=== PATIENT | female | born 1955 | race Caucasian/White ===

== ENCOUNTER 2018-02-10 14:43 | Emergency (ER) | payer BC, OTHER ==
[~2018-02-10] VITALS: Ht 160 cm; Wt 54.0 kg
[2018-02-10 14:55] VITALS: TEMP 36.6
[2018-02-10] MEDS ORDERED: SODIUM CHLORIDE 0.9% 1000ML 1,000 ML IV STA (15:29)
[2018-02-10] MEDS ORDERED: ONDANSETRON INJ 2 MG/ML 2 ML VIAL IV STA (15:29)
[2018-02-10 15:45] VITALS: O2SAT 98; Ht 160 cm; Wt 54.0 kg
--- NOTE | 2018-02-10 15:50 | DIAGNOSTIC IMAGING REPORT ---
CHEST ONE VIEW PORTABLE CLINICAL HISTORY: EVALUATE WEAKNESS COMPARISON STUDY: No previous studies for comparison. FINDINGS: Lung volumes are normal. No pneumothorax or pleural effusion is noted. There is no consolidation or evidence for pulmonary edema. Cardiomediastinal silhouette is normal. IMPRESSION: No acute cardiopulmonary findings. Electronically signed by: Farhad Kumar M.D. 02/10/2018 3:48 PM Dictated Date/Time: 02/10/2018 3:47 PM
[2018-02-10 16:06] LABS: HEMATOCRIT 40.1 % (37-47); HEMOGLOBIN 13.7 g/dL (12.0-16.0); MEAN CELL VOLUME 88.7 fL (80-100); MEAN CORPUSCULAR HEMOGLOBIN 30.3 pg (25-34); MEAN CORPUSCULAR HGB CONC 34.2 g/dl (32-36); MEAN PLATELET VOLUME 9.4 fL (7.4-10.4); PLATELET COUNT 172 K/uL (130-400); RED CELL DISTRIBUTION WIDTH CV 12.3 % (11.5-14.5); RED CELL DISTRIBUTION WIDTH SD 39.5 fL (36.4-46.3); WHITE BLOOD COUNT 2.64 K/uL (4.8-10.8)
[2018-02-10 16:15] LABS: ALBUMIN 3.5 gm/dl (3.4-5.0); ALT/SGPT 22 U/L (12-78); AST/SGOT 21 U/L (15-37); BLOOD UREA NITROGEN 18 mg/dl (7-18); CALCIUM 8.3 mg/dl (8.5-10.1); CARBON DIOXIDE 28 mmol/L (21-32); CREATININE 0.94 mg/dl (0.60-1.20); GLUCOSE 99 mg/dl (70-99); LIPASE 104 U/L (73-393); POTASSIUM 3.8 mmol/L (3.5-5.1); SODIUM 140 mmol/L (136-145)
[2018-02-10 16:23] LABS: INFLUENZA B ANTIGEN POS for Influ B (NEG)
[2018-02-10 16:26] LABS: ALKALINE PHOSPHATASE 58 U/L (45-117); TOTAL PROTEIN 7.2 gm/dl (6.4-8.2)
[2018-02-10] MEDS ORDERED: ONDA4TAB65 PO (16:41)
--- NOTE | 2018-02-10 16:42 | EMERGENCY ROOM VISIT NOTE ---
History Report prepared by Yaiblouisa: Nirmal Sánchez Under the Supervision of: Dr. Gabriel Mckeon M.D. First contact with patient: 15:20 Chief Complaint: WEAKNESS Stated Complaint: FLU x5DAYS,SEVERE WEAKNESS,CAN'TGET UP Nursing Triage Summary: Patient states "I have been in bed for the last 5 days, I can't move, I can't lift my head." Patient saw PCP and was started on Tamiflu on Friday but states it made her throw up violently. Patient states she has been eating and drinking but just feels exhausted and dizzy. Patient tearful in triage. Denies pain History of Present Illness The patient is a 63 year old white female who presents to the ED with a cc of constant generalized illness beginning five days ago. Positive generalized weakness, fatigue, cough, diaphoresis, chills. Negative nausea, sore throat, urinary symptoms or rashes. Patient was seen by her PCP and was started on Tamiflu two days ago. Tamiflu was ordered based on symptoms rather than a positive flu test. She developed vomiting (x1 episode) after taking Tamiflu. No recent stream or well water consumption. Patient reports walking 18 miles a week with her dog, but has not noticed any tick bites recently. Source of History: patient Onset: Five days ago Position: other (generalized) Quality: other (illness) Timing: constant Associated Symptoms: + chills, + diaphoresis, + cough, + fatigue, + weakness (generalized), No sorethroat, No nausea, No urinary symptoms, No rash Review of Systems See HPI for pertinent positives and negatives. A total of ten systems were reviewed and were otherwise negative. Past Medical & Surgical Medical Problems: (1) No Known Active Medical Problems Family History No pertinent family history stated. Social History Smoking Status: Never Smoker Marital Status: Housing Status: lives with family Current/Historical Medications Scheduled PRN Ondansetron Hcl (Zofran), 1 TAB PO Q4H PRN for Nausea Allergies Coded Allergies: No Known Allergies (Unverified , 02/10/18) Physical Exam Vital Signs Date Time Temp Pulse Resp B/P (MAP) Pulse Ox O2 Delivery O2 Flow Rate FiO2 02/10/18 16:35 58 18 124/73 97 Room Air 02/10/18 16:17 60 02/10/18 15:50 58 16 118/81 99 Room Air 02/10/18 15:45 98 Room Air 02/10/18 14:55 36.6 67 16 147/88 99 Room Air Physical Exam GENERAL: Awake, alert, well-appearing, NAD. Malaise. General fatigue. HENT: Normocephalic, atraumatic. EYES: Normal conjunctiva. Sclera non-icteric. PERRL. No anisocoria. NECK: Supple. No nuchal rigidity. FROM. RESPIRATORY: CTAB, no rhonchi, wheezing, crackles CARDIAC: RRR, no MRG ABDOMEN: Soft, NTND, BS+ MSK: No chest wall TTP, no LE edema NEURO: GCS 15, CN 2-12 intact, moves all 4s on command SKIN: No rash or jaundice noted. Medical Decision & Procedures ER Provider Diagnostic Interpretation: Radiology results as stated below per my review and radiologist interpretation: CHEST ONE VIEW PORTABLE FINDINGS: Lung volumes are normal. No pneumothorax or pleural effusion is noted. There is no consolidation or evidence for pulmonary edema. Cardiomediastinal silhouette is normal. IMPRESSION: No acute cardiopulmonary findings. Electronically signed by: Farhad Kumar M.D. 02/10/2018 3:48 PM Laboratory Results 02/10/18 15:45 Red Blood Count 4.52, Mean Corpuscular Volume 88.7, Mean Corpuscular Hemoglobin 30.3, Mean Corpuscular Hemoglobin Concent 34.2, Mean Platelet Volume 9.4 02/10/18 15:45 Test 02/10/18 15:45 02/10/18 15:48 White Blood Count 2.64 K/uL (4.8-10.8) Red Blood Count 4.52 M/uL (4.2-5.4) Hemoglobin 13.7 g/dL (12.0-16.0) Hematocrit 40.1 % (37-47) Mean Corpuscular Volume 88.7 fL (80-100) Mean Corpuscular Hemoglobin 30.3 pg (25-34) Mean Corpuscular Hemoglobin Concent 34.2 g/dl (32-36) Platelet Count 172 K/uL (130-400) Mean Platelet Volume 9.4 fL (7.4-10.4) RDW Standard Deviation 39.5 fL (36.4-46.3) RDW Coefficient of Variation 12.3 % (11.5-14.5) Neutrophils % (Manual) 43.9 % Lymphocytes % (Manual) 49.1 % Monocytes % (Manual) 6.1 % Basophils % (Manual) 0.9 % Neutrophils # (Manual) 1.16 K/uL (1.4-6.5) Total Absolute Neutrophils 1.16 K/uL (1.4-6.5) Lymphocytes # (Manual) 1.30 K/uL (1.2-3.4) Total Absolute Lymphocytes 1.30 K/uL (1.2-3.4) Monocytes # (Manual) 0.16 K/uL (0.11-0.59) Basophils # (Manual) 0.02 K/uL (0-0.2) Anion Gap 5.0 mmol/L (3-11) Est Creatinine Clear Calc Drug Dose 50.0 ml/min Estimated GFR () 74.3 Estimated GFR (Non- 64.1 BUN/Creatinine Ratio 18.6 (10-20) Calcium Level 8.3 mg/dl (8.5-10.1) Magnesium Level 2.0 mg/dl (1.8-2.4) Total Bilirubin 0.4 mg/dl (0.2-1) Direct Bilirubin 0.1 mg/dl (0-0.2) Aspartate Amino Transf (AST/SGOT) 21 U/L (15-37) Alanine Aminotransferase (ALT/SGPT) 22 U/L (12-78) Alkaline Phosphatase 58 U/L (45-117) Troponin I < 0.015 ng/ml (0-0.045) Total Protein 7.2 gm/dl (6.4-8.2) Albumin 3.5 gm/dl (3.4-5.0) Lipase 104 U/L (73-393) Thyroid Stimulating Hormone (TSH) 2.730 uIu/ml (0.300-4.500) Influenza Type A Antigen Neg for Influ A (NEG) Influenza Type B Antigen POS for Influ B (NEG) Laboratory results reviewed by me Medications Administered Medications (Trade) Dose Ordered Sig/Chloé Route Start Time Stop Time Status Last Admin Dose Admin Sodium Chloride 1,000 ml @ 999 mls/hr Q1H1M STAT IV 02/10/18 15:29 02/10/18 16:29 DC 02/10/18 15:52 999 MLS/HR ECG Per My Interpretation Indication: weakness Rate (beats per minute): 57 Rhythm: sinus bradycardia Findings: other (Normal intervals. Normal axis. No STS changes or TWI. ) ED Course 1523: The patient was evaluated in room A4B. A complete history and physical exam was performed. 1650: I reevaluated the patient. Discussed results and discharge instructions: she verbalized understanding and agreement. The patient is ready for discharge. Medical Decision Nursing notes reviewed. Ancillary studies and prior records reviewed. The patient is a 63 year old white female who presents to the ED with a cc of constant generalized illness beginning five days ago. Positive generalized weakness, fatigue, cough, diaphoresis, chills. Differential diagnosis: Etiologies such as metabolic, infection, hypo/hyperglycemia, electrolyte abnormalities, cardiac sources, intracerebral event, toxicologic, neurologic, as well as others were entertained. Patient was seen and evaluated the bedside. Patient was complaining of some generalized illness, weakness, and body aches approximately 5 days prior. Patient was prescribed Tamiflu but was not tested for influenza but the patient did not continue take her medications as she had some vomiting. Patient has had some decreased p.o. intake. Patient did have blood work completed along with an influenza swab, chest x- ray. Patient's chest x-ray clear. Patient did test positive for influence of B. Patient is outside the 48 hour window for improvement of symptoms with Tamiflu given that the patient did not tolerate it very well has not given it now. Patient did have some mild leukopenia this is likely related to her viral illness. Patient did feel mildly improved after symptomatic treatment. Patient was informed of findings. Patient was told that she should continue to hydrate liberally with clear liquids and take [id number] type medications. Patient was given strict follow-up, discharge, and return precautions. All questions were answered. Patient was deemed suitable for outpatient follow-up at this time. Patient agreed with the plan of care and was safely discharged home. Medication Reconcilliation Current Medication List: was personally reviewed by me Blood Pressure Screening Patient's blood pressure: Normal blood pressure Blood pressure disposition: Did not require urgent referral Impression Primary Impression: Influenza B Additional Impressions: Viral syndrome Dehydration Leukopenia Scribe Attestation The scribe's documentation has been prepared under my direction and personally reviewed by me in its entirety. I confirm that the note above accurately reflects all work, treatment, procedures, and medical decision making performed by me. Departure Information Dispostion Home / Self-Care Prescriptions Ondansetron Hcl (ZOFRAN) 4 Mg Tab 1 TAB PO Q4H Y for Nausea for 3 Days, #20 TAB 2 Refills Prov: Gabriel Mckeon M.D. 02/10/18 Referrals Dano Torres M.D. (PCP) Patient Instructions Dehydration, ED Flu, My [facility] Additional Instructions Please return to the emergency department if you have worsening or recurrent symptoms not amenable to at-home treatment. Please call for a follow-up appointment with her primary care physician. Please take your medications as prescribed. If you have other concerns and/or complaints please feel free to also call your primary care physician's office or return the ED for further evaluation, management, and treatment. Continue to hydrate liberally with clear liquids. Advance her diet as tolerated. Consider soups, broth, saltines, light pasta. You may take 800 mg Ibuprofen every 6 hours as needed for pain/fever with food unless told by your physician not to take NSAIDs. You may take tylenol 1000 mg every 6 hours as needed for pain/fever unless told by your physician to not take it or have liver problems. You may take motrin and tylenol separately or at the same time. Take your medications as prescribed. You have been examined and treated today on an emergency basis only. This is not a substitute for, or an effort to provide, complete comprehensive medical care. It is impossible to recognize and treat all injuries or illnesses in a single emergency department visit. It is therefore important that you follow up closely with [facility], your PCP, and/or your specialist(s). Call as soon as possible for an appointment. Thank you for your time and consideration. I look forward to speaking with you again soon. Please don't hesitate to call us if you have any questions. Problem Qualifiers
[2018-02-10 17:18] VITALS: BP 123/74; PULSE 61; O2SAT 97
== END 2018-02-10 17:20 | disposition home or self-care (01) ==
LOC: C.EDB 14:45 → C.EDA 17:20
DX: J10.1 Influenza due to other identified influenza virus with other respiratory manifestations (principal); E86.0 Dehydration; D72.819 Decreased white blood cell count, unspecified

== ENCOUNTER 2021-11-25 21:35 | Observation (INO) ==
[2021-11-25] MEDS ORDERED: SODIUM CHLORIDE 0.9% 500 ML IV STA (21:55)
[2021-11-25] MEDS ORDERED: KETOROLAC TROMETHAMINE 15 MG/ML VIAL IV STA ×2 (21:55→22:48)
--- NOTE | 2021-11-25 22:14 | Emergency Department Note ---
Impression & Plan RLQ abdominal pain, Acute appendicitis ED Provider Note NAME: DANIELLA VILLANUEVA AGE: 66 SEX: F : 1955 ARRIVES VIA: Walk-In INFORMANT: [Patient] ED PROVIDER(S): [Amish Childress MD] CHIEF COMPLAINT: Abdominal pain HISTORY OF PRESENT ILLNESS: The patient is a 66-year-old female who presents with 1 week of right lower quadrant abdominal pain. The pain has been mild but today after eating lunch, it got worse. Sitting still the pain is a 4, movement or turning or walking increases the pain. Even laughing makes the pain worse. She had a low-grade fever today. She has had no urinary complaints. No cough or congestion or shortness of breath. She has no prior history of abdominal surgeries. The patient had a similar pain a few months ago. The pain lingered for about a month before going away. REVIEW OF SYSTEMS: See HPI for pertinent positives and negatives. A total of ten systems were reviewed and were otherwise negative. PMHx/PSHx: See Below SOCIAL HISTORY: See Below. PHYSICAL EXAM: GENERAL: Patient is in no acute distress. HEENT: No acute trauma, normocephalic atraumatic, mucous membranes moist, no nasal congestion, no scleral icterus. NECK: No stridor, no adenopathy, no meningismus, trachea is midline. LUNGS: Clear to auscultation bilaterally, no wheeze, no rhonchi, breath sounds equal. HEART: Without murmurs gallops or rubs, regular rate and rhythm. ABDOMEN: Soft, moderately tender in the right lower quadrant, bowel sounds positive, no hernias, no peritonitis. EXTREMITIES: No cyanosis or edema, full range of motion of all the joints without pain or difficulty, no signs for acute trauma. NEUROLOGIC: Oriented x 3, no acute motor or sensory deficits, no focal weakness. SKIN: No rash, no jaundice, no diaphoresis. DIFFERENTIAL DIAGNOSIS: Appendicitis, ovarian cyst, ovarian torsion, diverticulitis, UTI, obstruction, mesenteric ischemia, aortic pathology, inflammatory bowel disease, renal colic, PUD, pancreatitis, biliary pathology, hernia, volvulus, constipation, as well as other pathologies. EMERGENCY DEPARTMENT COURSE/PROCEDURES: MEDICAL DECISION MAKING: There is no leukocytosis or concerning anemia. There is a normal platelet count. Sodium was a bit low but not in need of emergent correction. No renal failure. No significant electrolyte abnormality. No evidence for pancreatitis. Urinalysis does not show infection. On exam, the patient was quite tender in the right lower quadrant. She was not febrile or toxic. Abdominal and pelvis CT shows acute appendicitis with an appendicolith, no rupture or abscess seen. The patient received IV Toradol for pain, she received IV saline for hydration. She received IV cefoxitin. The on-call surgeon was consulted. I did speak with the patient about her findings, case management was made aware. The patient is being hospitalized for an appendectomy. The CT findings certainly explain her pain. Past Med/Surg History Medical History No significant medical problems Social History Smoking Status: Never smoker Preferred Language: Pakistani Feels Safe at Home: Yes Allergies Allergies Allergy/AdvReac Type Severity Reaction Status Date / Time No Known Allergies Allergy Unverified 11/25/21 22:13 Home Meds Home Medications Medication Instructions Recorded Confirmed cholecalciferol (vitamin D3) 25 50 mcg PO DAILY 11/25/21 11/25/21 mcg (1,000 unit) tablet (Vitamin D3) zinc 50 mg tablet 50 mg PO DAILY 11/25/21 11/25/21 Results & Data (ED) Vital Signs Vital Signs - 24 hr 11/25/21 21:37 11/25/21 23:06 Temperature 37.0 C Temperature Source Temporal Artery Scan Pulse Rate 83 Pulse Rate [Finger] 77 Respiratory Rate 16 Respiratory Effort / Characteristics Non-Labored Spontaneous Respiratory Depth Normal Blood Pressure 143/88 H Blood Pressure Mean 106 Blood Pressure Position Sitting Pulse Oximetry 98 99 Oxygen Delivery Method Room Air Room Air Sepsis Recent Fever Within 48 Hours No Sepsis New/Unexplained Change in Mental Status N/A Sepsis Action Taken by Nursing No Action Required Home Medications Current Medication List: was personally reviewed by me Laboratory Data Attestation: I reviewed the patient's lab results. Result diagrams: 11/25/21 22:15 11/25/21 22:15 Lab Results 11/25/21 11/25/21 11/25/21 Range/Units 22:15 22:15 22:15 WBC 10.33 (4.8-10.8) K/uL RBC 4.13 L (4.2-5.4) M/uL Hgb 12.8 (12.0-16.0) g/dL Hct 37.6 (37-47) % MCV 91.0 (80-100) fL MCH 31.0 (25-34) pg MCHC 34.0 (32-36) g/dL RDW Std Deviation 41.0 (36.4-46.3) fL RDW Coeff of Malinda 12.3 (11.5-14.5) % Plt Count 256 (130-400) K/uL MPV 9.8 (7.4-10.4) fL Immature Gran % (Auto) 0.1 % Neut % (Auto) 79.5 % Lymph % (Auto) 10.4 % Hartley % (Auto) 9.7 % Eos % (Auto) 0.2 % Baso % (Auto) 0.1 % Neut # (Auto) 8.22 H (1.4-6.5) K/uL Lymph # (Auto) 1.07 L (1.2-3.4) K/uL [place] # (Auto) 1.00 H (0.11-0.59) K/uL Eos # (Auto) 0.02 (0-0.5) K/uL Baso # (Auto) 0.01 (0-0.2) K/uL Immature Gran # (Auto) 0.01 (0.00-0.02) K/uL Sodium 135 L (136-145) mmol/L Potassium 3.7 (3.5-5.1) mmol/L Chloride 100 (98-107) mmol/L Carbon Dioxide 27 (21-32) mmol/L Anion Gap 8 (3-11) BUN 21 (6-23) mg/dl Creatinine 0.96 (0.6-1.2) mg/dl Est Cr Clr Drug Dosing 47.0 ml/min Est GFR ( Amer) 70.9 ml/min Est GFR (Non-Af Amer) 61.2 ml/min BUN/Creatinine Ratio 21.9 H (10-20) Glucose 111 H (70-99(Fasting)) mg/dl Calcium 9.1 (8.5-10.1) mg/dl Total Bilirubin 0.7 (0.2-1.0) mg/dl AST 17 (13-39) U/L ALT 20 (7-52) U/L Alkaline Phosphatase 81 (34-104) U/L Total Protein 7.3 (6.0-8.3) gm/dl Albumin 4.0 (3.4-5.0) gm/dl Globulin 3.3 (2.5-4.0) gm/dl Albumin/Globulin Ratio 1.2 (0.9-2) Lipase 7 L (11-82) U/L Urine Color Yellow Urine Appearance Clear (Clear) Urine pH 7.5 (4.5-7.5) Ur Specific [place] 1.024 (1.000-1.030) Urine Protein Negative (Negative) Urine Glucose (UA) Negative (Negative) Urine Ketones 1+ H (Negative) Urine Blood Negative (Negative) Urine Nitrite Negative (Negative) Urine Bilirubin Negative (Negative) Urine Urobilinogen Negative (Negative) Ur Leukocyte Esterase Negative (Negative) Administered Medications Sodium Chloride (Nss 1000ml) 500 mls @ 999 mls/hr IV .Q31M ONE Stop: 11/26/21 00:20 Last Admin: 11/25/21 23:57 Dose: 999 mls/hr Documented by: [id number] Discontinued Medications Sodium Chloride (Nss) 500 mls @ 999 mls/hr IV .Q31M STA Stop: 11/25/21 22:25 Last Infusion: 11/25/21 23:36 Dose: 0 mls/hr Documented by: [id number] Admin: 11/25/21 22:15 Dose: 999 mls/hr Documented by: [id number] Ioversol (Optiray 320 100ml) 95 ml IV ONCE ONE Stop: 11/25/21 23:04 Last Admin: 11/25/21 23:04 Dose: 95 ml Documented by: [id number] Ketorolac Tromethamine (Ketorolac Tromethamine 15 Mg/Ml Vial) 15 mg IV NOW STA Stop: 11/25/21 21:56 Last Admin: 11/25/21 22:15 Dose: Not Given Documented by: [id number] Ketorolac Tromethamine (Ketorolac Tromethamine 15 Mg/Ml Vial) 15 mg IV NOW STA Stop: 11/25/21 22:49 Last Admin: 11/25/21 22:49 Dose: 15 mg Documented by: [id number] Imaging Data Radiologist's Impression: Abdominal and pelvis CT with IV contrast: There is a 11 mm appendicolith within the appendix which is dilated to 2.2 cm and demonstrates surrounding inflammati on characteristic of acute appendicitis. No signs of overt rupture or abscess formation. The liver, gallbladder, pancreas, spleen, adrenal glands and kidneys appear within normal limits. The aorta is nondilated. The uterus, adnexa, and urinary bladder are within normal limits. No acute fracture or subluxation is seen. Discharge Plan Visit Data Chief Complaint: Abdominal Pain Stated Complaint: RLQ PAIN ED Provider: Amish Childress Discharge Problem: RLQ abdominal pain, Acute appendicitis Patient Disposition: Admitted As Inpatient Condition: Good Forms Stand Alone Forms: [facility] [employer] Prescriptions Prescriptions: No Action zinc 50 mg Tablet 50 mg PO DAILY RF: 0 cholecalciferol (vitamin D3) [Vitamin D3] 25 mcg (1,000 unit) Tablet 50 mcg PO DAILY RF: 0 Referrals Referrals: Dano Torres MD [Outside Practitioners] - Discharge Problem: Acute appendicitis Qualifiers: Acute appendicitis type: with localized peritonitis Appendicitis gangrene presence: without gangrene Appendicitis perforation presence: without perforation Appendicitis abscess presence: without abscess Qualified Code(s): K35.30 - Acute appendicitis with localized peritonitis, without perforation or gangrene
[2021-11-25 22:21] LABS: Basophils # (auto) 0.01 K/uL (0-0.2); Basophils % (auto) 0.1 %; Eosinophils # (auto) 0.02 K/uL (0-0.5); Eosinophils % (auto) 0.2 %; Hematocrit (blood only) 37.6 % (37-47); Hemoglobin 12.8 g/dL (12.0-16.0); Immature Granulocytes # (auto) 0.01 K/uL (0.00-0.02); Immature Granulocytes % (auto) 0.1 %; Lymphocytes # (auto) 1.07 K/uL (1.2-3.4); Lymphocytes % (auto) 10.4 %; Mean Platelet Volume 9.8 fL (7.4-10.4); Monocytes % (auto) 9.7 %; Neutrophils # (auto) 8.22 K/uL (1.4-6.5); Neutrophils % (auto) 79.5 %; Platelet Count 256 K/uL (130-400); RDW Coefficient of Variation 12.3 % (11.5-14.5); Red Blood Count 4.13 M/uL (4.2-5.4); White Blood Count 10.33 K/uL (4.8-10.8)
[2021-11-25 22:22] LABS: Appearance Urine Clear (Clear); Bilirubin Urine Negative (Negative); Blood Urine Negative (Negative); Color Urine Yellow; Glucose Urine UA Negative (Negative); Ketones Urine 1+ (Negative); Leukocyte Esterase Urine Negative (Negative); Nitrite Urine Negative (Negative); Protein Urine Negative (Negative); Specific Gravity Urine 1.024 (1.000-1.030); Urobilinogen Urine Negative (Negative); pH Urine 7.5 (4.5-7.5)
[2021-11-25 22:44] LABS: Albumin Globulin Ratio 1.2 (0.9-2); BUN Creatinine Ratio 21.9 (10-20); Bilirubin,Total 0.7 mg/dl (0.2-1.0); Calcium 9.1 mg/dl (8.5-10.1); Est GFR (African American) 70.9 ml/min; Est GFR (Non-African American) 61.2 ml/min; Globulin 3.3 gm/dl (2.5-4.0); Potassium 3.7 mmol/L (3.5-5.1); Total Protein 7.3 gm/dl (6.0-8.3)
[2021-11-25] MEDS ORDERED: OPTIRAY 320 100ml IV ONE (23:03)
[2021-11-25] MEDS ORDERED: SODIUM CHLORIDE 0.9% 1000ML 500 ML IV ONE (23:50)
[2021-11-26] MEDS ORDERED: cefOXitin 2,000 MG/60 ML BAG IV STA (00:09)
--- NOTE | 2021-11-26 00:22 | Communication Note ---
Date of Service: November 26, 2021 66 y/o female with uncomplicated appendicitis on CT, will admit to med/surg and plan for laparoscopic appendectomy in AM.
[2021-11-26] MEDS ORDERED: ACETAMINOPHEN 1000 MG/100 ML IV IV SCH (02:18)
[2021-11-26] MEDS ORDERED: ONDANSETRON INJ 2 MG/ML 2 ML VIAL IV PRN ×2 (02:18→07:21)
[2021-11-26] MEDS ORDERED: diphenhydrAMINE 50 MG/ML VIAL IV PRN (02:18)
[2021-11-26] MEDS ORDERED: MoRPHine SULFATE 4 MG/ML 1 ML CARP\\VIAL IV PRN (02:18)
[2021-11-26] MEDS ORDERED: MoRPHine SULFATE 2 MG/ML CARP IV PRN (02:18)
[2021-11-26] MEDS ORDERED: LACTATED RINGER'S 1,000 ML IV SCH (02:18)
[2021-11-26] MEDS ORDERED: ACETAMINOPHEN 1,000 MG/100 ML VIAL IV SCH (03:00)
[2021-11-26] MEDS: cefOXitin 2,000 MG in DEXTROSE 5% 50 ML IV SCH ×2 (05:39→11:52)
--- NOTE | 2021-11-26 07:11 | CT Scan Report ---
CT abd pelvis IV con only CLINICAL HISTORY: rlq pain TECHNIQUE: Helical axial images of the abdomen and pelvis were obtained and displayed. Automated dose lowering techniques and/or adjustment according to patient size were utilized for this exam. This e xam was performed with intravenous contrast. COMPARISON: None available at the time of this dictation. FINDINGS: Lower chest: Bibasilar atelectasis versus scarring is seen. Liver: Unremarkable. No focal lesions are seen. Gallbladder and biliary tree: No calcified gallstones. Normal caliber wall. No intra- or extrahepatic biliary ductal dilation. Pancreas: Unremarkable, no focal lesions. Spleen: Unremarkable. Adrenals: Unremarkable. Kidneys and ureters: Subcentimeter hypodensities are too small to characterize. Bladder: Unremarkable. Reproductive organs: Unremarkable. Bowel: Markedly dilated appendix. An appendicolith is seen in the appendix is dilated up to 2.2 cm. N o evidence of rupture. Lymph nodes Retroperitoneal: Unremarkable. Mesenteric: Subcentimeter nodes are seen in the right lower quadrant. Pelvic: Unremarkable. Peritoneum: Normal. Vessels: Unremarkable. Abdominal wall: A fat-containing umbilical hernia is seen. Bones: Degenerative changes in the visualized spine. IMPRESSION: Findings are compatible with acute appendicitis without evidence of rupture or abscess formation. ACT 112: Negative or not required by law. Electronically signed by: Jose Cedillo M.D. 11/26/2021 7:10 AM
--- NOTE | 2021-11-26 07:15 | Anesthesiology Consultation ---
Date of Service November 26, 2021 Assessment & Plan (1) Encounter for pre-operative examination: Chart Review Chart Review: entry level project coordinator initiated History Surgery Operation Date: 11/26/21 09:40 Proposed Procedures p Laparoscopic Appendectomy - Gama Acevedo DO, FACS Height/Weight Height: 5 ft 3 in Weight: 57.2 kg Allergies Allergy/AdvReac Type Severity Reaction Status Date / Time No Known Allergies Allergy Unverified 11/25/21 22:13 Medications Home Medications Medication Instructions Recorded Confirmed Last Taken cholecalciferol (vitamin D3) 25 50 mcg PO DAILY 11/25/21 11/25/21 11/25/21 mcg (1,000 unit) tablet (Vitamin D3) zinc 50 mg tablet 50 mg PO DAILY 11/25/21 11/25/21 11/25/21 Active Medications Generic Name Dose Route Start Last Admin Trade Name Freq PRN Reason Stop Dose Admin Lactated Ringer's 1,000 mls @ 125 mls/hr 11/26/21 02:18 11/26/21 02:36 Lr IV 12/26/21 02:17 125 mls/hr .Q8H AYAH Administration Cefoxitin Sodium 2,000 mg/ 60 mls @ 100 mls/hr 11/26/21 06:00 11/26/21 06:16 Dextrose IV 11/27/21 05:59 Infused Q6H AYAH Infusion Acetaminophen 1,000 mg in 100 mls @ 400 mls/hr 11/26/21 03:00 11/26/21 03:32 Ofirmev IV 11/29/21 02:59 Infused Q8H AYAH Infusion Protocol Past Medical History Medical History No significant medical problems Social History Smoking Status: Never smoker Hx Alcohol Use: No Hx Substance Use: No Physical Exam Vital Signs Last Vital Signs Temp 99.3 F 11/26/21 02:05 Pulse 77 11/26/21 02:05 Resp 16 11/26/21 02:05 BP 143/80 H 11/26/21 02:05 Pulse Ox 94 11/26/21 02:05 Testing Laboratory Results 11/25/21 22:15 11/25/21 22:15 Urine Color Yellow 11/25/21 22:15 Urine Appearance Clear (Clear) 11/25/21 22:15 Urine pH 7.5 (4.5-7.5) 11/25/21 22:15 Ur Specific [place] 1.024 (1.000-1.030) 11/25/21 22:15 Urine Protein Negative (Negative) 11/25/21 22:15 Urine Glucose (UA) Negative (Negative) 11/25/21 22:15 Urine Ketones 1+ (Negative) H 11/25/21 22:15 Urine Nitrite Negative (Negative) 11/25/21 22:15 Ur Leukocyte Esterase Negative (Negative) 11/25/21 22:15
[2021-11-26] MEDS ORDERED: fentaNYL citrate 100 MCG/2 ML VIAL IV PRN (07:21)
[2021-11-26] MEDS ORDERED: ATROPINE SULFATE 0.1 MG/ML 10ML SYR IV PRN (07:21)
[2021-11-26] MEDS ORDERED: ePHEDrine sulfate 50 MG/ML AMP IV PRN (07:21)
[2021-11-26] MEDS ORDERED: ONDANSETRON INJ 2 MG/ML 2 ML VIAL ONE ×2 (07:34→08:48)
[2021-11-26] MEDS ORDERED: MIDAZOLAM HCL 1 MG/ML 2ML VIAL ONE (07:34)
[2021-11-26] MEDS ORDERED: PROPOFOL IV EMULSION 10 MG/ML 20 ML VIAL IV ONE (07:34)
[2021-11-26] MEDS ORDERED: LIDOCAINE 2% 2 ML VIAL/AMP(20MG/ML) INFIL ONE (07:34)
[2021-11-26] MEDS ORDERED: fentaNYL citrate 100 MCG/2 ML VIAL ONE (07:34)
[2021-11-26] MEDS ORDERED: DEXAMETHASONE SOD INJ 4 MG/ML VIAL ONE (07:34)
[2021-11-26] MEDS ORDERED: GLYCOPYRROLATE 0.2 MG/ML VIAL ONE ×2 (07:34→08:47)
[2021-11-26] MEDS ORDERED: NEOSTIGMINE METHYLSULFATE 1 MG/ML 10ML VIAL ONE (07:34)
[2021-11-26] MEDS ORDERED: ROCURONIUM BROMIDE 10 MG/ML 5 ML VIAL IV ONE (07:47)
[2021-11-26] MEDS ORDERED: LARYING-O-JET KIT (LTA) ONE (07:47)
--- NOTE | 2021-11-26 08:12 | History & Physical Report ---
Date of Service November 26, 2021 Assessment & Plan (1) Acute appendicitis: Plan: 66 year old female with acute appendicitis plan for laparoscopic appendectomy risks discussed to include but not limited to bleeding, infection, open surgery, damage to surrounding structures, abscess, normal appendix, need for future or more extensive surgery, and risks of anesthesia. possible d/c this afternoon Admission and Anticipated Discharge Date Admission Date: November 26, 2021 History of Present Illness Primary Care Provider: Mehdi Correia MD 66 y/o female presented to ED with 5 days RLQ pain. Started but wasn't too bad, yesterday got worse. No fevers, no other symptoms. History of similar symptoms a few months ago. Otherwise healthy, no prior surgery. Allergies Allergy/AdvReac Type Severity Reaction Status Date / Time No Known Allergies Allergy Unverified 11/25/21 22:13 Home Medications Medication Instructions Recorded Confirmed Type cholecalciferol (vitamin D3) 25 50 mcg PO DAILY 11/25/21 11/25/21 History mcg (1,000 unit) tablet (Vitamin D3) zinc 50 mg tablet 50 mg PO DAILY 11/25/21 11/25/21 History Past Med/Surg History Medical History No significant medical problems Surgical History (Updated 11/26/21 @ 08:07 by Alexia Gregorio RN) History of colonoscopy Social History Smoking Status: Never smoker Hx Alcohol Use: No Hx Substance Use: No Preferred Language: Persian Communication Ability: Effective 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 Beliefs That Will Affect Care: Rastafarian Rastafarian Beliefs: JEW Current Living Situation: Spouse Feels Safe at Home: Yes Safety Concerns: Feels Safe At This Time Assistive Devices: Glasses Review of Systems Review of Systems: All systems reviewed & are unremarkable except as noted in HPI & below Physical Exam Constitutional: WD/WN, vitals as above Respiratory: normal respiratory effort, lungs clear to auscultation Cardiovascular: RRR, no murmur, no edema Gastrointestinal (Abdomen): Percussion/Palpation: + abdomen tender (TTP in RLQ) and abdomen soft; no guarding, abdomen not rigid and no hepatosplenomegaly Results & Data Results & Data ([facility]) Vital Signs (Past 12 Hours) Vital Signs Temp Pulse Pulse Resp BP BP Pulse Ox 11/26/21 07:17 36.4 C L 71 16 127/77 96 11/26/21 02:05 37.4 C 77 16 143/80 H 94 11/26/21 01:03 76 18 96 11/25/21 23:06 77 99 11/25/21 21:37 37.0 C 83 16 143/88 H 98 Laboratory Results Laboratory Results - last 24 hr 11/25/21 11/25/21 11/25/21 22:15 22:15 22:15 WBC 10.33 RBC 4.13 L Hgb 12.8 Hct 37.6 MCV 91.0 MCH 31.0 MCHC 34.0 RDW Std Deviation 41.0 RDW Coeff of Malinda 12.3 Plt Count 256 MPV 9.8 Immature Gran % (Auto) 0.1 Neut % (Auto) 79.5 Lymph % (Auto) 10.4 [place] % (Auto) 9.7 Eos % (Auto) 0.2 Baso % (Auto) 0.1 Neut # (Auto) 8.22 H Lymph # (Auto) 1.07 L [place] # (Auto) 1.00 H Eos # (Auto) 0.02 Baso # (Auto) 0.01 Immature Gran # (Auto) 0.01 Sodium 135 L Potassium 3.7 Chloride 100 Carbon Dioxide 27 Anion Gap 8 BUN 21 Creatinine 0.96 Est Cr Clr Drug Dosing 47.0 Est GFR ( Amer) 70.9 Est GFR (Non-Af Amer) 61.2 BUN/Creatinine Ratio 21.9 H Glucose 111 H Calcium 9.1 Total Bilirubin 0.7 AST 17 ALT 20 Alkaline Phosphatase 81 Total Protein 7.3 Albumin 4.0 Globulin 3.3 Albumin/Globulin Ratio 1.2 Lipase 7 L Urine Color Yellow Urine Appearance Clear Urine pH 7.5 Ur Specific [place] 1.024 Urine Protein Negative Urine Glucose (UA) Negative Urine Ketones 1+ H Urine Blood Negative Urine Nitrite Negative Urine Bilirubin Negative Urine Urobilinogen Negative Ur Leukocyte Esterase Negative SARS-CoV-2, RNA, NAAT 11/26/21 00:46 WBC RBC Hgb Hct MCV MCH MCHC RDW Std Deviation RDW Coeff of Malinda Plt Count MPV Immature Gran % (Auto) Neut % (Auto) Lymph % (Auto) [place] % (Auto) Eos % (Auto) Baso % (Auto) Neut # (Auto) Lymph # (Auto) [place] # (Auto) Eos # (Auto) Baso # (Auto) Immature Gran # (Auto) Sodium Potassium Chloride Carbon Dioxide Anion Gap BUN Creatinine Est Cr Clr Drug Dosing Est GFR ( Amer) Est GFR (Non-Af Amer) BUN/Creatinine Ratio Glucose Calcium Total Bilirubin AST ALT Alkaline Phosphatase Total Protein Albumin Globulin Albumin/Globulin Ratio Lipase Urine Color Urine Appearance Urine pH Ur Specific [place] Urine Protein Urine Glucose (UA) Urine Ketones Urine Blood Urine Nitrite Urine Bilirubin Urine Urobilinogen Ur Leukocyte Esterase SARS-CoV-2, RNA, NAAT NEGATIVE Diagnostic Findings CT abd pelvis IV con only CLINICAL HISTORY: rlq pain TECHNIQUE: Helical axial images of the abdomen and pelvis were obtained and displayed. Automated dose lowering techniques and/or adjustment according to patient size were utilized for this exam. This exam was performed with intravenous contrast. COMPARISON: None available at the time of this dictation. FINDINGS: Lower chest: Bibasilar atelectasis versus scarring is seen. Liver: Unremarkable. No focal lesions are seen. Gallbladder and biliary tree: No calcified gallstones. Normal caliber wall. No intra- or extrahepatic biliary ductal dilation. Pancreas: Unremarkable, no focal lesions. Spleen: Unremarkable. Adrenals: Unremarkable. Kidneys and ureters: Subcentimeter hypodensities are too small to characterize. Bladder: Unremarkable. Reproductive organs: Unremarkable. Bowel: Markedly dilated appendix. An appendicolith is seen in the appendix is dilated up to 2.2 cm. No evidence of rupture. Lymph nodes Retroperitoneal: Unremarkable. Mesenteric: Subcentimeter nodes are seen in the right lower quadrant. Pelvic: Unremarkable. Peritoneum: Normal. Vessels: Unremarkable. Abdominal wall: A fat-containing umbilical hernia is seen. Bones: Degenerative changes in the visualized spine. IMPRESSION: Findings are compatible with acute appendicitis without evidence of rupture or abscess formation. Code Status & VTE Plan VTE Prophylaxis Plan VTE Prophylaxis will be ordered: Yes PG Care Time/CCT Total # of Minutes Spent Total Time Spent with Patient: Total time spent is greater than 50% in coordination of care (as documented) at patient's floor/unit and/or counseling patient: Coding Level of Care Code INT OBSERVATION CARE 50M LVL 2 Diagnoses Acute appendicitis K35.30 Acute appendicitis type: with localized peritonitis Appendicitis abscess presence: without abscess Appendicitis gangrene presence: without gangrene Appendicitis perforation presence: without perforation (1) Acute appendicitis Acute appendicitis type: with localized peritonitis Appendicitis abscess presence: without abscess Appendicitis gangrene presence: without gangrene Appendicitis perforation presence: without perforation Qualified Code(s): K35.30 - Acute appendicitis with localized peritonitis, without perforation or gangrene
[2021-11-26] MEDS ORDERED: BUPIVACAINE 0.5 % 5 MG/1 ML MPF 30ML VIAL ONE (08:13)
[2021-11-26] MEDS ORDERED: PHENYLEPHRINE 100MCG/ML 5ML SYR ONE (08:47)
[2021-11-26] MEDS ORDERED: KETOROLAC 30 MG/ML VIAL ONE (09:06)
--- NOTE | 2021-11-26 09:37 | Operative Report ---
PG Post Operative Report Pre & Post Diagnosis Operation Date: 11/26/21 09:40 Pre-Op Diagnosis: Acute Appendicitis Postop diagnosis: Acute appendicitis with contained perforation I identified the patient and participated in the time-out.: Yes Procedure Operation Date: 11/26/21 09:40 Actual Procedures p Laparoscopic Appendectomy - Gama Acevedo DO, FACS Surgeon Gama Acevedo DO, FACS Inspector Technician None Estimated Blood Loss 5 Findings Consistent with Post-Op Diagnosis Acute appendicitis. Contained perforation against abdominal wall and colon with no abscess. Good hemostasis. Specimens Appendix Anesthesia Type General Complications none Disposition Accompanied Patient To Recovery: No Disposition: Recovery Room Indications 66-year-old female with acute appendicitis, plan for laparoscopic appendectomy. The risks of the procedure were discussed, all questions were answered, and the patient agreed to proceed with surgery as planned. Description of Procedure The patient was properly identified, consented, and taken to the operating room where she was placed in the supine position. General endotracheal anesthesia was induced. SCDs and a safety belt were placed. Preoperative antibiotics were administered. A Patel catheter was not placed. The patient's abdomen was prepped and draped in the standard sterile fashion. Surgical timeout was performed and all parties were in agreement that this was the correct patient and procedure to be performed and we continued as planned. An incision was made to the left of the umbilicus and the Veress needle was inserted. Saline drop test confirmed entry into the abdomen. The abdomen was insufflated with carbon dioxide patient tolerated without incident. The abdomen was entered using the Optiview technique and a 5 mm camera. The laparoscope was inserted and no damage from initial trocar placement or Veress needle placement was noted. No gross abnormalities were noted within the 4 quadrants the abdomen. A 12 mm port was placed in the left lower quadrant with care not to damage the epigastric vessels, and a 5 mm port was placed in the suprapubic midline with care not to damage the bladder. The patient was placed in Trendelenburg position and rotated towards the left. The small bowel was swept away from the right lower quadrant. The cecum was grasped with an atraumatic grasper exposing the appendix. The appendix was severely inflamed. It was partially retrocecal and densely adhered to the lateral colon. There was minimal fluid in the pelvis. A window was created between the base of the appendix and the mesoappendix. A richmond loaded endoscopic stapler was then used to divide the appendix at its base. The Sonicision was then used to divide the mesoappendix. There was evidence of a tiny contained perforation within the distal portion of the appendix. There is no abscess or gross spillage. Hemostasis was good. The appendix was placed in an Endo Catch bag and removed through the left lower quadrant port site. The right lower quadrant and pelvis was irrigated and hemostasis was found to be good. The 12 mm port site fascia was closed with an 0 Vicryl utilizing the Horacio-Bhargavi device. 5 mm trochars were and the abdomen was allowed to collapse. The skin of all ports was closed with 4-0 Monocryl subcuticular sutures. Dermabond was placed over the wounds. The patient was extubated in the operating room and taken to the PACU where she recovered without apparent incident. All sponge, instrument and needle counts were correct at the conclusion of the procedure. The patient tolerated the procedure well. I attest to the content of the Intraoperative Record and any orders documented therein. Any exceptions are noted below.
--- NOTE | 2021-11-26 10:36 | Anesthesiology Progress Note ---
Date of Service November 26, 2021 Anesthesia Post Procedure Vital Signs Vital Signs: Temp Pulse Pulse Pulse Resp BP BP 11/26/21 10:30 97.5 F L 59 L 14 106/59 L 11/26/21 10:20 57 L 12 106/56 L 11/26/21 10:10 58 L 17 95/60 L 11/26/21 10:00 57 L 14 103/55 L 11/26/21 09:50 54 L 14 91/58 L 11/26/21 09:43 98.2 F 62 19 95/56 L 11/26/21 08:01 98.4 F 75 18 142/73 H 11/26/21 07:17 97.5 F L 71 16 127/77 11/26/21 02:05 99.3 F 77 16 143/80 H 11/26/21 01:03 76 18 11/25/21 23:06 77 11/25/21 21:37 98.6 F 83 16 143/88 H Pulse Ox 11/26/21 10:30 95 11/26/21 10:20 100 11/26/21 10:10 100 11/26/21 10:00 99 11/26/21 09:50 100 11/26/21 09:43 99 11/26/21 08:01 97 11/26/21 07:17 96 11/26/21 02:05 94 11/26/21 01:03 96 11/25/21 23:06 99 11/25/21 21:37 98 Pain Intensity Right Lower Abdomen: Pain Intensity: 10 Transfer of Care Handoff Completed per policy Notes Mental Status: alert / awake / arousable and participated in evaluation Patient Amnestic to Procedure: Yes Nausea / Vomiting: adequately controlled Pain: adequately controlled Airway Patency, RR, SpO2: stable & adequate BP & HR: stable & adequate Hydration State: stable & adequate Anesthetic Complications: no major complications apparent and Pt Satisfied with anesthetic care
[2021-11-26] MEDS ORDERED: oxyCODONE/ACETAMINOPHEN 5mg/325mg TAB PO PRN ×2 (10:48)
[2021-11-26] MEDS ORDERED: KETOROLAC TROMETHAMINE 15 MG/ML VIAL IV SCH (14:00)
--- NOTE | 2021-11-26 15:31 | Discharge Summary ---
Date of Service November 26, 2021 Admission HPI Per Admitting Provider 66 y/o female presented to ED with 5 days RLQ pain. Started but wasn't too bad, yesterday got worse. No fevers, no other symptoms. History of similar symptoms a few months ago. Otherwise healthy, no prior surgery. Principal Diagnosis Acute appendicitis Discharge Exam Constitutional WD/WN, vitals as above Gastrointestinal (Abdomen) Inspection/Auscultation: + abdominal surgical incision (dry); abdomen not distended Percussion/Palpation: abdomen soft Discharge Data Allergies Allergy/AdvReac Type Severity Reaction Status Date / Time No Known Allergies Allergy Unverified 11/25/21 22:13 Consultations 11/26/21 00:10 ED Decision to Admit Stat Procedures Performed Operation Date: 11/26/21 09:40 Actual Procedures p Laparoscopic Appendectomy - Gama Acevedo DO, FACS Ordered Studies 11/25/21 21:55 CT abd pelvis IV con only Urgent Hospital Course (1) Acute appendicitis: 66 y/o female presented to the ER with abdominal pain for several days. White count was 10,[address] was consistent with acute appendicitis with appendicolith. She was admitted to the the surgical floor overnight and taken to the operating room for laparoscopic appendectomy in the morning. She was returned to the surgical galvan and during the day was able to advance diet and tolerate oral analgesics. She was stable for discharge home that evening. Total Time Total Time Spent Total Time Spent (In Minutes): 15 Discharge Plan Discharge Items Patient Disposition: Home - Self-Care Reason For Visit: APPENDICITIS Discharge Diagnosis: Appendctomy Condition on Discharge: Good Activity: As commented below Lifting: No more than 10 pounds Bathing Comment: ok to shower over skin glue Driving/Machine Use: Resume 3 days after discharge Non-emergency contact: Surgeon Call non-emergency contact if: you have any medication questions, your pain is not controlled, you have a fever, your temperature is above 101.5 and your wound has increased redness Follow-up/Referrals: Gama Acevedo DO, FACS [Physician] - (Please call to make an appt in approx 2 weeks) Mehdi Correia MD [Primary Care Provider] - Diet: Regular Addtl Attending Provider Instructions: You can take ibuprofen 600 mg every 6 hours as needed between or instead of Percocet for pain Pending Studies at Discharge: No Stand-Alone Forms: [facility], Opioid Pain Management, Smoking Cessation Medications and DC Order Prescriptions: New oxycodone-acetaminophen [Percocet] 5-325 mg tablet 1 - 2 tab PO Q4H PRN (Reason: pain, initial therapy, max 6 daily) Qty: 15 RF: 0 amoxicillin-pot clavulanate 875-125 mg tablet 1 tab PO BID Qty: 10 RF: 0 Continued zinc 50 mg Tablet 50 mg PO DAILY RF: 0 cholecalciferol (vitamin D3) [Vitamin D3] 25 mcg (1,000 unit) Tablet 50 mcg PO DAILY RF: 0 Discharge Orders: Discharge Order (Routine); Ordered 11/26/21 Ordered By: Jan Lamb Admission Data Admit Date/Time: 11/26/21 00:21 Attending Provider: Gama Acevedo Admit Provider: Gama Acevedo Primary Care Provider: Mehdi Correia Other Providers: Gama Acevedo Coding Level of Care Code D/C DAY MANAGEMENT <30 MINS Diagnoses Acute appendicitis K35.30 Acute appendicitis type: with localized peritonitis Appendicitis abscess presence: without abscess Appendicitis gangrene presence: without gangrene Appendicitis perforation presence: without perforation
--- NOTE | 2021-11-27 06:18 | Electrocardiogram Report ---
Test Reason : Blood Pressure : / mmHG Vent. Rate : 072 BPM Atrial Rate : 072 BPM P-R Int : 130 ms QRS Dur : 084 ms QT Int : 410 ms P-R-T Axes : 054 056 002 degrees QTc Int : 448 ms Normal sinus rhythm Cannot rule out Anterior infarct (cited on or before 10-FEB-2018) Nonspecific ST abnormality Abnormal ECG When compared with ECG of 10-FEB-2018 15:45, Nonspecific ST abnormality is now Present in Inferolateral leads Confirmed by José Phoenix ([id number]) on 11/27/2021 6:18:13 AM Referred By: REFERRED SELF Confirmed By:José Phoenix
== END 2021-11-26 18:19 | disposition home or self-care (01) ==
LOC: 3W 21:35 → ED 21:35 → 3W 11-26 02:03